=== PATIENT | female | born 1985 | race Caucasian/White ===

== ENCOUNTER → 2022-01-25 | Outpatient (CLI) | payer OTHER ==
[2022-01-28 12:10] LABS: HPV 16 Negative (Negative); HPV 18 Negative (Negative); HPV OTHER HR TYPES Negative (Negative)
== END | disposition home or self-care (01) ==
LOC: LAB 14:20 → LAB SHORT 14:20
PROVIDERS: Family Medicine
DX: Z01.419 Encounter for gynecological examination (general) (routine) without abnormal findings (principal)
CPT/HCPCS: 87624; G0123

== ENCOUNTER 2022-04-20 08:24 | Day surgery (SDC) | payer OTHER ==
[~2022-04-20] VITALS: Ht 157 cm; Wt 104.7 kg
[2022-04-20] MEDS ORDERED: FOLI1 PO (08:42)
[2022-04-20] MEDS ORDERED: Flonase 0.05% N16 GM (08:42)
[2022-04-20] MEDS ORDERED: PRENATAL TABLE1 EAC2 PO (08:42)
--- NOTE | 2022-04-20 09:20 | NUR ---
Ambulatory in Day Surgery History, Chart, Medications and Allergies reviewed before start of procedure.Patient confirms NPO status and agrees with scheduled surgery. PATIENT TOOK ORAL DOXICYCLINE PER MD ORDERS. PAS IN PLACE
--- NOTE | 2022-04-20 10:50 | NUR ---
04/20/22 1050 Kiley Katz ANTIBIOTICS GIVEN IN PRE-OP
--- NOTE | 2022-04-20 12:03 | NUR ---
MINIMAL BLOOD NOTED ON PERIE PAD. Discharge instructions reviewed with patient. Patient verbalizes understanding. Copy given to patient to take home. Discharged via wheelchair to private car for ride home.
[2022-04-21 13:56] LABS: Performing Lab SYMBIODX; Test Name MOLAR PREG
== END 2022-04-20 12:05 | disposition home or self-care (01) ==
LOC: ORSCMMR 08:24 → ORD 10:00 → ORSCMMR 12:05
PROVIDERS: Obstetrics & Gynecology; Pathology Clinical Pathology/Laboratory Medicine
PROC: 10D17Z9 Manual Extraction of Products of Conception, Retained, Via Natural or Artificial Opening (ICD-10-PCS; principal; 2022-04-20 10:00)
DX: O02.1 Missed abortion (principal); E66.01 Morbid (severe) obesity due to excess calories; Z68.41 Body mass index [BMI] 40.0-44.9, adult
CPT/HCPCS: 88305; A9270; J1100; J1885; J2250; J2405; J2704; J3010; J7120

== ENCOUNTER → 2023-03-27 | Outpatient (CLI) | payer OTHER ==
[~2023-03-27] MED LIST: FOLI1 PO; Flonase 0.05% N16 GM; PRENATAL TABLE1 EAC2 PO
== END ==
LOC: LAB SHORT 15:11 → LAB 15:11
DX: O09.893 Supervision of other high risk pregnancies, third trimester (principal)
CPT/HCPCS: 87081; 87150

== ENCOUNTER 2023-04-12 05:25 | Inpatient (IN) | payer OTHER ==
[2023-04-12] VITALS (21 sets, daily range): BP systolic 88–144; BP diastolic 50–79
[~2023-04-12] VITALS: Ht 154.9 cm; Wt 115.0 kg
[2023-04-12 06:31] LABS: BASOPHILS ABSOLUTE AUTO 0.04 K/mm3 (0.00-0.23); BASOPHILS PERCENT AUTO 0 % (0-2); EOSINOPHILS ABSOLUTE AUTO 0.12 K/mm3 (0.00-0.68); EOSINOPHILS PERCENT AUTO 1 % (0-6); Hematocrit 32.7 % (33.0-51.0); Hemoglobin 10.5 g/dL (11.5-16.0); IMMATURE GRAN ABSOLUTE AUTO 0.31 K/mm3 (0.00-0.10); IMMATURE GRAN PERCENT AUTO 2 % (0-1); LYMPHOCYTES ABSOLUTE AUTO 2.47 K/mm3 (0.84-5.20); LYMPHOCYTES PERCENT AUTO 18 % (21-46); MONOCYTES ABSOLUTE AUTO 0.84 K/mm3 (0.16-1.47); MONOCYTES PERCENT AUTO 6 % (4-13); Mean Corpuscular HGB 26.6 pg (26.0-34.0); Mean Corpuscular HGB Conc 32.1 g/dL (31.5-36.5); Mean Corpuscular Volume 83 fL (80-100); Mean Platelet Volume 10.5 fL (9.1-12.4); NEUTROPHILS ABSOLUTE AUTO 9.81 K/mm3 (1.96-9.15); NEUTROPHILS PERCENT AUTO 72 % (41-73); Platelet Count 210 K/mm3 (150-400); RDW Coefficient Variation 15.3 % (11.7-14.2); RDW Standard Deviation 46.3 fL (35.1-46.3); Red Blood Cell Count 3.94 M/mm3 (3.80-5.20); White Blood Cell Count 13.59 K/mm3 (4.00-11.30)
--- NOTE | 2023-04-12 08:30 | NUR ---
04/12/23 0830 Orin Craft REPEAT DELIVERY OF MALE 9/9 APGARS WT [id number] GM
[2023-04-13 06:11] VITALS: BP 112/64
[2023-04-13 06:17] LABS: BASOPHILS ABSOLUTE AUTO 0.05 K/mm3 (0.00-0.23); BASOPHILS PERCENT AUTO 0 % (0-2); EOSINOPHILS ABSOLUTE AUTO 0.13 K/mm3 (0.00-0.68); EOSINOPHILS PERCENT AUTO 1 % (0-6); IMMATURE GRAN PERCENT AUTO 1 % (0-1); LYMPHOCYTES ABSOLUTE AUTO 2.31 K/mm3 (0.84-5.20); LYMPHOCYTES PERCENT AUTO 15 % (21-46); MONOCYTES ABSOLUTE AUTO 0.77 K/mm3 (0.16-1.47); MONOCYTES PERCENT AUTO 5 % (4-13); Mean Corpuscular HGB 26.9 pg (26.0-34.0); Mean Corpuscular HGB Conc 32.1 g/dL (31.5-36.5); Mean Corpuscular Volume 84 fL (80-100); Mean Platelet Volume 10.5 fL (9.1-12.4); NEUTROPHILS ABSOLUTE AUTO 11.66 K/mm3 (1.96-9.15); NEUTROPHILS PERCENT AUTO 77 % (41-73); Platelet Count 180 K/mm3 (150-400); RDW Coefficient Variation 15.7 % (11.7-14.2); RDW Standard Deviation 47.4 fL (35.1-46.3); Red Blood Cell Count 3.34 M/mm3 (3.80-5.20); White Blood Cell Count 15.12 K/mm3 (4.00-11.30)
--- NOTE | 2023-04-13 06:59 | NUR ---
0530: PT REFUSED TO TAKE A SHOWER WHEN OFFERED, REQUESTED ABIGAIL RAMESH TO GIVE HER A SHOWER.
[2023-04-13 07:44] VITALS: BP 116/65
[2023-04-13 11:13] VITALS: BP 118/65
--- NOTE | 2023-04-13 15:45 | NUR ---
Called to room as pt had passed slightly larger than golfball sized clot on pad when up to BR. No additional bleeding noted following clot. When pt stoof up there was another clot in toilet. Will notify
[2023-04-13 16:05] VITALS: BP 130/65
[2023-04-13 19:14] VITALS: BP 119/63
[2023-04-13 23:23] VITALS: BP 118/66
[2023-04-14 04:21] VITALS: BP 124/73
[2023-04-14 07:38] VITALS: BP 120/69
[2023-04-14 11:26] VITALS: BP 126/66
[2023-04-14 16:10] VITALS: BP 137/63
[2023-04-14 19:45] VITALS: BP 133/67
[2023-04-15 08:35] VITALS: BP 131/62
[2023-04-15 12:41] VITALS: BP 132/63
== END 2023-04-15 13:39 | disposition home or self-care (01) | DRG 788 ==
LOC: BC 05:25
PROVIDERS: ADMIT Obstetrics & Gynecology
PROC: 10D00Z1 Extraction of Products of Conception, Low, Open Approach (ICD-10-PCS; principal; 2023-04-12 07:30)
DX: O99.02 Anemia complicating childbirth (principal); O09.513 Supervision of elderly primigravida, third trimester; Z37.0 Single live birth; O24.429 Gestational diabetes mellitus in childbirth, unspecified control; O99.214 Obesity complicating childbirth; O34.211 Maternal care for low transverse scar from previous cesarean delivery; Z3A.39 39 weeks gestation of pregnancy; Z98.890 Other specified postprocedural states; Z67.40 Type O blood, Rh positive
CPT/HCPCS: 36415; 85025; 86850; 86900; 86901; 86923; A9270; J0690; J1885; J2270; J2371; J2405; J2590; J2704; J2765; J3010; J7120